=== PATIENT | male | born 1940 | race Caucasian/White ===

== ENCOUNTER 2017-09-09 08:23 | Day surgery (SDC) | payer OTHER ==
[~2017-09-09 08:23] MED LIST: SOD CHLORIDE 0.45% 1,000 ML IV
[2017-09-09] MEDS ORDERED: HEPARIN 1000 UNITS/ML 10 ML INJ (11:14)
[2017-09-09] MEDS ORDERED: NITROGLYCERIN (IC) 100 MCG/ML INJ (11:15)
[2017-09-09] MEDS ORDERED: LIDOCAINE 100 MG SYRINGE (11:15)
[2017-09-09] MEDS ORDERED: VERAPAMIL 5 MG INJ (11:15)
[2017-09-09] MEDS ORDERED: FENTAnyl 50 MCG/ML VIAL (11:15)
[2017-09-09] MEDS ORDERED: MIDAZOLAM 1 MG/ML 2 ML INJ (11:15)
[2017-09-09] MEDS ORDERED: IODIXANOL LOCM 100 ML BTL (11:16)
[2017-09-09] MEDS ORDERED: SOD CHLORIDE 0.45% IV (12:15)
[2017-09-09] MEDS ORDERED: ACETAMINOPHEN 325 MG TAB PO (12:30)
[2017-09-09] MEDS ORDERED: ONDANSETRON 4 MG INJ IV (12:30)
[2017-09-09] MEDS ORDERED: AL HYDROX/MG HYDROX/SIMETH 30 ML CUP PO (12:30)
== END 2017-09-09 20:10 | disposition home or self-care (01) ==
LOC: SDS 08:23
DX: I25.10 Atherosclerotic heart disease of native coronary artery without angina pectoris (principal); R94.39 Abnormal result of other cardiovascular function study; E11.9 Type 2 diabetes mellitus without complications; I50.22 Chronic systolic (congestive) heart failure
CPT/HCPCS: 82962; 93005; 93458; 93571